=== PATIENT | male | born 1950 | race Caucasian/White ===

== ENCOUNTER 2017-11-19 05:55 | Day surgery (SDC) | payer OTHER ==
[2017-11-19] MEDS ORDERED: DIPRIVAN 200 MG/20 ML IV ONE (05:56)
[2017-11-19] MEDS ORDERED: Ketamine HCl 50 MG/ML IJ ONE (05:56)
[2017-11-19] MEDS ORDERED: Lactated Ringers 1,000 ML IV SCH (06:30)
[2017-11-19 08:36] VITALS: BP 111/61; PULSE 65; O2SAT 95
--- NOTE | 2017-11-19 12:43 | OP ---
SURGERY DATE/TIME: 11/19/2017 0657 PREOPERATIVE DIAGNOSIS: History of colon polyps. POSTOPERATIVE DIAGNOSIS: Normal colon. PROCEDURE: Colonoscopy. SURGEON: Dr. Ledesma. ANESTHESIA: MAC. Medications given by anesthesia department. HISTORY: The patient is a 67 year-old white male patient who had history of colon polyps. He presents today for reinvestigation. At this time he was reappraised of the risks of the procedure including the risk of perforation, phlebitis, untoward reaction to medication, bleeding and missed lesions. The patient verbalized his understanding and desired to have the procedure performed. DESCRIPTION OF PROCEDURE: The patient was given the medications by the anesthesia department. He had continuous pulse oximetry, ECG monitoring, intermittent blood pressure monitoring and tidal CO2 monitoring during the examination. He was placed in the left lateral decubitus position. A digital rectal examination was performed and revealed normal anal sphincter tone, no masses and normal prostate. The flexible Olympus pediatric colonoscope was used to intubate the rectum. A view of the colon was developed sequentially to the cecum. Upon insertion and withdrawal, including a retroflex view in the rectum, no mucosal lesions were encountered. The scope was removed from the patient who tolerated the procedure well and was sent back to OP recovery in good condition. The prep was noted to be fair.
== END 2017-11-19 08:40 | disposition home or self-care (01) ==
LOC: SDC 05:55
PROVIDERS: ATTEND Family Medicine
DX: Z86.010 Personal history of colon polyps (principal); E11.9 Type 2 diabetes mellitus without complications; Z79.4 Long term (current) use of insulin; Z79.899 Other long term (current) drug therapy
CPT/HCPCS: 82962; 94250; J2704

== ENCOUNTER 2021-12-26 06:06 | Day surgery (SDC) | payer MEDICARE ==
[2021-12-26] MEDS ORDERED: Lactated Ringers 1,000 ML IV SCH (07:00)
[2021-12-26] MEDS ORDERED: Xylocaine-Mpf 2% 5 Ml Vial ONE (07:29)
[2021-12-26] MEDS ORDERED: DIPRIVAN 200 MG/20 ML IV ONE (07:29)
[2021-12-26] MEDS ORDERED: Versed 2 MG/2 ML Injection ONE (07:29)
[2021-12-26 08:24] VITALS: PULSE 67
[2021-12-26 08:30] VITALS: BP 133/75; O2SAT 96
--- NOTE | 2021-12-26 10:45 | OP ---
SURGERY DATE/TIME: 12/26/2021 6439 PREOPERATIVE DIAGNOSIS: Gastroesophageal reflux disease. POSTOPERATIVE DIAGNOSES: 1) Mild reflux esophagitis. 2) Mild NSAID gastropathy. PROCEDURE: Esophagogastroduodenoscopy. SURGEON: Dr. Julian Ledesma. ANESTHESIA: Medications were given by the anesthesia department. BRIEF HISTORY: The patient is a 71-year-old white male patient who reports that for years he had problems with burning in his throat. He has previously had nasal laryngoscopy. He had a period of time in 2013 where he was intubated for prelonged period of time for what was thought to be potential lung cancer. At that time he had chest tubes and actually had a stroke at that time as well. The patient was felt to need to have endoscopic evaluation. He was appraised of the risks of the procedure including the risk of perforation, phlebitis, untoward reaction to medication, sore throat and missed lesions. The patient verbalized his understanding and desired to have the procedure performed. DESCRIPTION OF PROCEDURE: The patient was given the medications by the anesthesia department. He had continuous pulse oximetry, ECG monitoring, intermittent blood pressure monitoring during the examination. He was placed in the left lateral decubitus position. A bite block was placed. The flexible Olympus gastroscope was used to intubate the oropharynx. A view of the larynx was obtained and appeared to be normal. The scope was easily introduced in the esophagus which appeared to be normal to the gastroesophageal junction where there appeared to be a small reflux esophagitis. The stomach was entered where normal gastric rugal folds were seen and these distended nicely with insufflation of air. The scope was passed along the greater curvature of the stomach to the antrum. The pylorus encountered and intubated. The duodenum inspected and found to be normal. The scope is withdrawn towards the stomach. A retroflex view was obtained of the lesser curvature, fundus and cardia regions of the stomach. We noted a couple of areas of what appeared to be an NSAID-type gastropathy. The scope was then withdrawn from the stomach to the esophagus. On careful inspection particularly attention paid to the larynx. There appeared to be no other significant pathology. The scope was removed from the patient who tolerated the procedure well and was sent back to outpatient recovery in good condition. Afterwards discussion was had with the patient's and we suggested he hold the aspirin for a couple of weeks and start on some Prilosec and to follow up in the office.
== END 2021-12-26 08:37 | disposition home or self-care (01) ==
LOC: SDC 06:06
PROVIDERS: ATTEND Family Medicine
DX: K21.00 Gastro-esophageal reflux disease with esophagitis, without bleeding (principal); K21.9 Gastro-esophageal reflux disease without esophagitis; E11.9 Type 2 diabetes mellitus without complications; K31.9 Disease of stomach and duodenum, unspecified
CPT/HCPCS: 82947; J2250; J2704

== ENCOUNTER 2024-03-06 07:04 | Day surgery (SDC) | payer MEDICARE ==
--- NOTE | 2024-03-05 12:56 | HP ---
HISTORY OF PRESENT ILLNESS: The patient is a 74-year-old male who presents with complaints of epigastric pain, swallowing hurts. He has acid. He is on some pantoprazole. It does not totally help with the acid. He reports being on a special diet and losing some weight. Despite that, he still has pain and a sharp pain in his throat. PAST MEDICAL HISTORY: Hypertension, hyperlipidemia, diabetes, GERD, asthma, COPD, sleep apnea. HOME MEDICATIONS: Albuterol, Ventolin, pantoprazole, metformin, Lyrica, fenofibrate, folic acid, lisinopril, simvastatin. ALLERGIES: Sulfa. PAST SURGICAL HISTORY: Hip replacement, mouth and lower lip surgery. SOCIAL HISTORY: Former smoker. FAMILY HISTORY: Diabetes. REVIEW OF SYSTEMS: CONSTITUTIONAL: Denies fever or chills. CHEST: Denies shortness of breath. CARDIOVASCULAR: Denies chest pain. ABDOMEN: Reports epigastric pain. PHYSICAL EXAMINATION: GENERAL: No acute distress. CARDIOVASCULAR: Regular rate and rhythm. ABDOMEN: Soft. ASSESSMENT: Epigastric pain. PLAN: EGD with Dr. Reji Davila. This report was dictated for Dr. Davila by Chantell Pena NP.
[2024-03-06 07:35] VITALS: TEMP 98.6
[2024-03-06 07:37] LABS: Absolute Neutrophil Ct (ANC) 3.31 x10^3/uL (1.78-5.38); BASOPHIL % 0.6 % (0.2-1.2); Basophil (Absolute #) 0.04 x10^3/uL (0.01-0.08); Eosinophil % 4.7 % (0.8-7.0); Eosinophil (Absolute #) 0.33 x10^3/uL (0.04-0.54); Hematocrit 37.6 % (40.1-51.0); Hemoglobin 12.3 g/dL (13.7-17.5); IMMATURE GRAN # 0.02 x10^3u/L (0.001-0.031); IMMATURE GRAN % 0.3 % (0.001-0.429); Lymphocyte (Absolute #) 2.71 x10^3/uL (1.32-3.57); Lymphocytes % 38.3 % (21.8-53.1); Mean Cell Volume 92.4 fL (79.0-92.2); Mean Corpuscular Hemoglobin 30.2 pg (25.7-32.2); Mean Corpuscular Hgb Concent. 32.7 g/dL (32.3-36.5); Mean Platelet Volume 10.6 fL (9.4-12.4); Monocyte (Absolute #) 0.67 x10^3/uL (0.30-0.82); Monocytes % 9.5 % (5.3-12.2); Neutrophil % 46.6 % (34.0-67.9); Platelet Count 369 x10^3/uL (163-337); Red Blood Count 4.07 x10^6/uL (4.63-6.08); Red Cell Distribution Width 12.9 % (11.6-14.4); White Blood Count 7.1 x10^3/uL (4.23-9.07)
[2024-03-06 07:50] LABS: ANION GAP 9.7 MEQ/L (5-15); Calcium 9.9 mg/dL (8.4-10.2); Creatinine 1 1.44 mg/dL (0.66-1.25); EST GLOMERULAR FILTRATION RATE 51.6 ML/MIN; Potassium 4.2 mmol/L (3.5-5.1)
[2024-03-06] MEDS ORDERED: DIPRIVAN 200 MG/20 ML IV ONE (09:32)
[2024-03-06] MEDS ORDERED: Xylocaine-Mpf 2% 5 Ml Vial ONE (09:32)
[2024-03-06 09:52] VITALS: RESP 18
[2024-03-06 10:00] VITALS: O2SAT 96
[2024-03-06 10:04] VITALS: BP 107/66; PULSE 73
--- NOTE | 2024-03-10 08:47 | OP ---
SURGERY DATE/TIME: 03/06/2024 [id number] PREOPERATIVE DIAGNOSIS: Epigastric pain. POSTOPERATIVE DIAGNOSIS: Epigastric pain. PROCEDURE: EGD. SURGEON: Reji Davila MD INDICATIONS: Patient has seen an motorboat mechanic inboard. He had had a major left lower lip lesion earlier in life that had been treated by 2 or 3 surgeries and had been successful. He has been a smoker his entire life basically. I think he did have heavy chew or snuff for quite awhile. He is having a lot of reflux symptoms and burning. He is on reflux medicine. DESCRIPTION OF PROCEDURE AND FINDINGS: Scope was placed. With the epiglottis being open, on the lower surface there was some atypical leukoplakia material there that was slightly raised and certainly atypical appearing. Vocal cords were satisfactory. I think there was a little scattered leukoplakia on his larynx itself. The esophagus was cannulated. The reflux was limited to a 2 cm rim, a little esophagitis down at the EG junction. There was no hiatal hernia. Fundus, body, antrum normal. Duodenal bulb was normal. Second portion normal. Scope withdrawn, looped upon itself. No hiatal hernia. Scope withdrawn. No suggestions of any premalignancy or significant issue at the EG junction, just reflux, although it is quite bothersome to him. Additional reflux instructions: Not eating past 6 or 7 p.m., placing a board or brick underneath the head of bed or triangle. He certainly needs this area of his larynx closely followed. He is being followed by ENT and it was reminded to the that he at least get this re-looked at in 6 months or a year and this dark side of the epiglottis is what I was particularly interested in.
== END 2024-03-06 10:14 | disposition home or self-care (01) ==
LOC: SDC 07:04
PROVIDERS: ATTEND Surgery
DX: R10.13 Epigastric pain (principal); I10 Essential (primary) hypertension; E11.9 Type 2 diabetes mellitus without complications; K22.89 Other specified disease of esophagus
CPT/HCPCS: 36415; 80048; 82947; 85025; 93005; 99100; J2704